=== PATIENT | female | born 2000 | race African-American/Black ===

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

== ENCOUNTER → 2023-04-22 | Emergency (ER) | payer OTHER ==
[~2023-04-22] VITALS: Ht 165.1 cm; Wt 86.2 kg
[~2023-04-22] MED LIST: PENI500T PO; dexaMETHasone SOD PHOSPHATE 10 MG/ML VIAL ONE; dexaMETHasone SOD PHOSPHATE 4 MG/ML VIAL IM ONE
[2023-04-22 11:10] VITALS: BP 113/73; TEMP 98.5; O2SAT 100
== END | disposition home or self-care (01) ==
LOC: ER 11:42
DX: J02.0 Streptococcal pharyngitis (principal); J45.909 Unspecified asthma, uncomplicated
CPT/HCPCS: 99283; 96372; J1100

== ENCOUNTER 2024-09-05 17:54 | Emergency (ER) | payer OTHER ==
[~2024-09-05] VITALS: Ht 167.6 cm; Wt 79.4 kg
[~2024-09-05 17:54] MED LIST changes: -dexaMETHasone SOD PHOSPHATE 10 MG/ML VIAL ONE; -dexaMETHasone SOD PHOSPHATE 4 MG/ML VIAL IM ONE
[2024-09-05 19:34] LABS: BASOPHILS % (AUTO) 0.4 % (0.0-2.0); EOSINOPHILS # (AUTO) 0.1 K/uL (0.0-0.7); EOSINOPHILS % (AUTO) 0.6 % (0.0-6.0); HEMATOCRIT 40 % (33-45); LYMPHOCYTES # (AUTO) 1.6 K/uL (0.8-4.8); LYMPHOCYTES % (AUTO) 14.8 % (20.0-44.0); MEAN CORPUSCULAR HEMOGLOBIN 27 PG (26.0-33.0); MEAN CORPUSCULAR HGB CONC 33 g/dl (31.0-36.0); MEAN CORPUSCULAR VOLUME 83 fL (82-100); MONOCYTES # (AUTO) 0.6 K/uL (0.1-1.30); MONOCYTES % (AUTO) 5.8 % (2.0-12.0); NEUTROPHILS # (AUTO) 8.4 K/uL (1.8-8.9); NEUTROPHILS % (AUTO) 78.4 % (43.0-81.0); PLATELET COUNT (AUTO) 258 K/uL (150-450); RED BLOOD CELL COUNT(AUTO) 4.82 MIL/uL (4.0-5.2); RED CELL DISTRIBUTION WIDTH 14.2 % (11.5-15.0); WHITE BLOOD COUNT (AUTO) 10.8 K/uL (4.3-11.0)
[2024-09-05 19:43] LABS: CALCIUM, SERUM 8.9 mg/dL (8.5-10.1); CARBON DIOXIDE 29 mmol/L (21-32); CHLORIDE 107 mmol/L (98-107); CREATININE 1.1 mg/dL (0.6-1.3); GLUCOSE 102 mg/dL (74-106); SODIUM SERUM 140 mmol/L (136-145); UREA NITROGEN, BLOOD 12 mg/dL (7-18)
[2024-09-05] MEDS ORDERED: HYDR-500 PO (20:13)
[2024-09-05 20:44] VITALS: BP 122/86; TEMP 98.2; O2SAT 98
== END 2024-09-05 20:45 | disposition home or self-care (01) ==
LOC: ER 17:55
DX: R07.89 Other chest pain (principal); F41.9 Anxiety disorder, unspecified; J45.909 Unspecified asthma, uncomplicated; Z79.899 Other long term (current) drug therapy
CPT/HCPCS: 36415; 71045-TC; 80048-TC; 84484-TC; 85025-TC

== ENCOUNTER 2024-11-11 05:19 | Emergency (ER) | payer OTHER ==
[~2024-11-11] VITALS: Ht 165.1 cm; Wt 81.6 kg
[~2024-11-11 05:19] MED LIST changes: +HYDR-500 PO
[2024-11-11 06:32] LABS: BASOPHILS % (AUTO) 0.2 % (0.0-2.0); EOSINOPHILS # (AUTO) 0.2 K/uL (0.0-0.7); EOSINOPHILS % (AUTO) 2.4 % (0.0-6.0); HEMATOCRIT 40 % (33-45); HEMOGLOBIN 13.3 g/dL (11.5-14.8); LYMPHOCYTES # (AUTO) 1.7 K/uL (0.8-4.8); LYMPHOCYTES % (AUTO) 18.5 % (20.0-44.0); MEAN CORPUSCULAR HEMOGLOBIN 27 PG (26.0-33.0); MEAN CORPUSCULAR HGB CONC 33 g/dl (31.0-36.0); MEAN CORPUSCULAR VOLUME 83 fL (82-100); MONOCYTES # (AUTO) 0.6 K/uL (0.1-1.30); MONOCYTES % (AUTO) 6.1 % (2.0-12.0); NEUTROPHILS # (AUTO) 6.7 K/uL (1.8-8.9); NEUTROPHILS % (AUTO) 72.8 % (43.0-81.0); PLATELET COUNT (AUTO) 239 K/uL (150-450); RED BLOOD CELL COUNT(AUTO) 4.83 MIL/uL (4.0-5.2); WHITE BLOOD COUNT (AUTO) 9.2 K/uL (4.3-11.0)
[2024-11-11 06:38] LABS: CALCIUM, SERUM 8.5 mg/dL (8.5-10.1); CREATININE 1.2 mg/dL (0.6-1.3); POTASSIUM 3.9 mmol/L (3.5-5.1)
[2024-11-11] MEDS ORDERED: BENZ-13 PO (08:07)
[2024-11-11] MEDS ORDERED: AZIT250T13 PO (08:07)
[2024-11-11] MEDS ORDERED: ALBU18HF2 INH (08:07)
[2024-11-11 08:26] VITALS: BP 114/78; TEMP 98.3; O2SAT 100
== END 2024-11-11 08:26 | disposition home or self-care (01) ==
LOC: ER 05:21
DX: J40 Bronchitis, not specified as acute or chronic (principal); R05.9 Cough, unspecified; K21.9 Gastro-esophageal reflux disease without esophagitis
CPT/HCPCS: 36415; 71045-TC; 80048-TC; 84703-TC; 85025-TC

== ENCOUNTER 2024-12-21 08:41 | Emergency (ER) | payer OTHER ==
[~2024-12-21] VITALS: Ht 165.1 cm; Wt 88.5 kg
[~2024-12-21 08:41] MED LIST changes: +ALBU18HF2 INH; +AZIT250T13 PO; +BENZ-13 PO; -HYDR-500 PO; -PENI500T PO
[2024-12-21] MEDS ORDERED: ALBU18HF2 INH (09:35)
[2024-12-21 10:48] VITALS: BP 118/81; TEMP 98.2; O2SAT 100
== END 2024-12-21 10:49 | disposition home or self-care (01) ==
LOC: ER 08:51
DX: F41.9 Anxiety disorder, unspecified (principal); R00.2 Palpitations; J45.909 Unspecified asthma, uncomplicated